=== PATIENT | female | born 1980 | race Caucasian/White ===

== ENCOUNTER → 2024-05-04 10:40 | Outpatient (REF) | payer BC, SELFPAY ==
[2024-05-04 11:52] LABS: % Basophils 0.6 % (0-2); % Eosinophils 3.6 % (0-6); % Immature Granulocytes 0.3 % (0-0.5); % Lymphocytes 26.7 % (20.5-51.1); % Monocytes 5.5 % (1.7-9.3); % Neutrophils 63.3 % (42.2-75.2); Absolute Basophils 0.1 10^3/uL (0-0.2); Absolute Eosinophils 0.3 10^3/uL (0-0.7); Absolute Lymphocytes 2.1 10^3/uL (1.2-3.4); Absolute Monocytes 0.4 10^3/uL (0.1-0.6); Hematocrit 41.5 % (37.0-47.0); Hemoglobin 13.8 g/dL (12.0-16.0); Mean Corp Hgb Conc. 33.3 g/dL (33.0-37.0); Mean Corpuscular Hgb 29.1 pg (27.0-31.0); Mean Corpuscular Volume 87.4 fL (81.0-99.0); Mean Platelet Volume 10.4 fL (7.4-10.4); Nucleated Red Blood Cells % 0 %; Platelet Count 300 10^3/uL (130-400); Red Blood Cell Count 4.75 10^6/uL (4.20-5.40); White Blood Cell Count 7.8 10^3/uL (4.8-10.8)
[2024-05-04 12:27] LABS: ALT (SGPT) 20 U/L (0-35); AST (SGOT) 19 U/L (14-36); Albumin 4.4 g/dl (3.5-5.0); Alkaline Phosphatase 63 U/L (38-126); Blood Urea Nitrogen 10 mg/dl (7-17); Calcium 9.4 mg/dl (8.4-10.2); Carbon Dioxide 24 mmol/L (22-30); Chloride 103 mmol/L (98-107); Glucose 92 mg/dl (70-99); HDL Cholesterol 56 mg/dl; LDL Cholesterol, Calculated 119 mg/dl; Potassium 4.2 mmol/L (3.5-5.1); Sodium 140 mmol/L (135-145); Total Bilirubin 1.2 mg/dl (0.2-1.3); Total Cholesterol 199 mg/dl (50-199); Total Protein 7.2 g/dl (6.3-8.2); Triglyceride 123 mg/dl (10-149); Very Low Density Lipoprotein 24 mg/dl (0-30); eGFR > 60.00
[2024-05-04 12:39] LABS: Free T4 0.91 ng/dl (0.78-2.19)
[2024-05-04 12:52] LABS: TSH 1.36 uIU/ml (0.47-4.68)
[2024-05-04 14:14] LABS: Glycohemoglobin (HgbA1c) 4.9 % (4.0-5.6)
== END ==
LOC: REG 10:40
PROVIDERS: ATTENDING PHYSICIAN Family Medicine
DX: E78.5 Hyperlipidemia, unspecified (principal)
CPT/HCPCS: 36415; 80053; 80061; 83036; 84439; 84443; 85025

== ENCOUNTER → 2024-07-21 12:01 | Outpatient (REF) | payer BC, SELFPAY | LOC: MRI 3T 12:01 | PROVIDERS: ATTENDING PHYSICIAN Orthopaedic Surgery; FAMILY PHYSICIAN Family Medicine | DX: M25.531 Pain in right wrist (principal) | CPT/HCPCS: 73221 ==

== ENCOUNTER 2024-08-07 06:14 | Day surgery (SDC) | payer BC, SELFPAY ==
[2024-08-07] VITALS (10 sets, daily range): BP systolic 100–156; BP diastolic 55–106; BMI 30.7
[2024-08-07] MEDS: NORMOSOL-R/PLASMALYTE-A 1000 IV (10:38)
[2024-08-07] MEDS: TYLENOL 1000 MG PO (10:38)
[2024-08-07] MEDS: CELEBREX 200 MG PO (10:38)
[2024-08-07] MEDS: VANCOCIN 200 IV (12:13)
[2024-08-07] MEDS: DILAUDID 0.25 MG IV (14:08)
[2024-08-07] MEDS: DILAUDID 0.5 MG IV (14:19)
== END 2024-08-07 15:45 | disposition home or self-care (01) ==
LOC: SDS 06:14
PROVIDERS: ATTENDING PHYSICIAN Orthopaedic Surgery
DX: S63.591A Other specified sprain of right wrist, initial encounter (principal); X58.XXXA Exposure to other specified factors, initial encounter
CPT/HCPCS: 25107; 29846; 87070

== ENCOUNTER → 2024-09-25 12:20 | Outpatient (REF) | payer BC, SELFPAY | LOC: RAD 12:20 | PROVIDERS: ATTENDING PHYSICIAN Family Medicine | DX: M25.521 Pain in right elbow (principal) | CPT/HCPCS: 73080 ==

== ENCOUNTER 2024-10-05 11:59 | Outpatient (RCR) | payer BC, SELFPAY | END 2024-10-05 23:59 | disposition home or self-care (01) | LOC: ROT 11:59 | PROVIDERS: ATTENDING PHYSICIAN Orthopaedic Surgery; FAMILY PHYSICIAN Family Medicine | DX: Z47.89 Encounter for other orthopedic aftercare (principal); S63.591D Other specified sprain of right wrist, subsequent encounter; Z73.6 Limitation of activities due to disability; X58.XXXD Exposure to other specified factors, subsequent encounter | CPT/HCPCS: 97022; 97110; 97140; 97166; 97535 ==

== ENCOUNTER 2024-10-24 14:57 | Outpatient (RCR) | payer BC, SELFPAY | END 2024-10-24 23:59 | disposition home or self-care (01) | LOC: ROT 14:57 | PROVIDERS: ATTENDING PHYSICIAN Orthopaedic Surgery; FAMILY PHYSICIAN Family Medicine | DX: Z47.89 Encounter for other orthopedic aftercare (principal); S63.591D Other specified sprain of right wrist, subsequent encounter; Z73.6 Limitation of activities due to disability; X58.XXXD Exposure to other specified factors, subsequent encounter | CPT/HCPCS: 97010; 97022; 97110; 97140 ==

== ENCOUNTER 2024-11-07 14:37 | Outpatient (RCR) | payer BC, SELFPAY | END 2024-11-07 23:59 | disposition home or self-care (01) | LOC: ROT 14:37 | PROVIDERS: ATTENDING PHYSICIAN Orthopaedic Surgery; FAMILY PHYSICIAN Family Medicine | DX: S63.591D Other specified sprain of right wrist, subsequent encounter (principal); Z73.6 Limitation of activities due to disability; X58.XXXD Exposure to other specified factors, subsequent encounter; Z47.89 Encounter for other orthopedic aftercare | CPT/HCPCS: 97022; 97110; 97140 ==